=== PATIENT | female | born 1985 | race Asian ===

== ENCOUNTER 2022-04-16 11:20 | Inpatient (IN) | payer OTHER ==
[2022-04-16] MEDS ORDERED: BETAMET ACET/BETAMET NA PH 30 MG/5 ML VIAL ONE (12:25)
[2022-04-16] MEDS ORDERED: SODIUM CHLORIDE 100 ML IVPB ONE (12:37)
[2022-04-16] MEDS ORDERED: AMPICILLIN SODIUM 2 GM VIAL ONE (12:37)
[2022-04-16] MEDS ORDERED: OXYTOCIN 20 UNITS in 0.9% NS 20 UNIT/1,000 ML INFUS.BAG IV ONE (12:43)
[2022-04-16] MEDS ORDERED: BENZOCAINE 28 GM HEMORRHOIDAL OINTMENT TP PRN (13:22)
[2022-04-16] MEDS ORDERED: BENZOCAINE 20% 57 GM BOTTLE TP PRN (13:22)
[2022-04-16] MEDS ORDERED: WITCH HAZEL 50% (TUCKS) 40 PAD/JAR PAD TP PRN (13:22)
[2022-04-16] MEDS ORDERED: METHYLERGONOVINE MALEATE 0.2 MG/1 ML AMP IM PRN (13:22)
[2022-04-16] MEDS ORDERED: ACETAMINOPHEN 325 MG TABLET (FP) PO PRN (13:22)
[2022-04-16] MEDS ORDERED: oxyCODONE HCL 5 MG TABLET PO PRN (13:22)
[2022-04-16] MEDS ORDERED: BISACODYL 10 MG SUPP.RECT RC PRN (13:22)
[2022-04-16 13:28] VITALS: BMI 25.2
[2022-04-16] MEDS ORDERED: OXYTOCIN 20 UNITS in 0.9% NS 20 UNIT/1,000 ML INFUS.BAG IV SCH (13:30)
[2022-04-16 14:39] LABS: BASO % 0.1 % (0-2.0); EOS % 0.2 % (0-4.5); HEMATOCRIT 44.9 % (32.4-45.2); HEMOGLOBIN 15.3 GM/dL (10.7-15.3); MCH 31.3 pg (25.7-33.7); MCHC 33.9 g/dl (32.0-36.0); MEAN CELL VOLUME 92.2 fl (80-96); MONO % 3.3 % (3.8-10.2); NEUT % 88.4 % (42.8-82.8); PLATELET COUNT 219 10^3/uL (134-434); RBC 4.87 M/mm3 (3.60-5.2); RDW 12.8 % (11.6-15.6); WHITE BLOOD COUNT 15.3 K/mm3 (4.0-10.0)
[2022-04-16 14:44] LABS: INR 0.96 (0.83-1.09)
[2022-04-16 14:47] LABS: ACTIVATED PTT 24.5 SECONDS (25.2-36.5)
[2022-04-16 15:00] LABS: CALCIUM 8.3 mg/dL (8.5-10.1)
[2022-04-16 15:01] LABS: BLOOD UREA NITROGEN 8.4 mg/dL (7-18)
[2022-04-16 15:04] LABS: CREATININE 0.4 mg/dL (0.55-1.3)
[2022-04-16] MEDS: IBUPROFEN 600 MG TABLET (FP) PO PRN (18:37)
[2022-04-17 09:30] LABS: BASO % 0.3 % (0-2.0); EOS % 1.2 % (0-4.5); HEMATOCRIT 41.1 % (32.4-45.2); HEMOGLOBIN 14.2 GM/dL (10.7-15.3); LYMPH % 15.4 % (8-40); MCH 31.7 pg (25.7-33.7); MCHC 34.5 g/dl (32.0-36.0); MEAN CELL VOLUME 92.1 fl (80-96); MEAN PLT VOLUME 7.7 fl (7.5-11.1); MONO % 4.5 % (3.8-10.2); NEUT % 78.6 % (42.8-82.8); PLATELET COUNT 218 10^3/uL (134-434); RBC 4.47 M/mm3 (3.60-5.2); RDW 12.4 % (11.6-15.6); WHITE BLOOD COUNT 11.1 K/mm3 (4.0-10.0)
[2022-04-17] MEDS: IBUPROFEN 600 MG TABLET (FP) PO PRN (18:50)
[2022-04-17] MEDS ORDERED: SENNOSIDES/DOCUSATE COMBO (SENNA PLUS) TABLET (UD) PO PRN (22:00)
[2022-04-18 11:01] VITALS: BP 107/67; PULSE 98; RESP 18; TEMP 98.4
== END 2022-04-18 13:15 | disposition home or self-care (01) | DRG 560 ==
LOC: JDEL 11:20 → JLDR 12:35 → J3W 16:32
PROVIDERS: ADMIT Specialist; ATTEND Specialist
PROC: 10E0XZZ Delivery of Products of Conception, External Approach (ICD-10-PCS; principal; 2022-04-16)
DX: O60.14X0 Preterm labor third trimester with preterm delivery third trimester, not applicable or unspecified (principal); O70.0 First degree perineal laceration during delivery; Z3A.30 30 weeks gestation of pregnancy; Z37.0 Single live birth
CPT/HCPCS: 36415; 59025; 59409; 80048; 80053; 83021; 83655; 85025; 85027; 85610; 85660; 85730; 86480; 86780; 86803; 86850; 86900; 86901; 87389; C9803-CS; U0003; U0005